=== PATIENT | male | born 1980 | race Caucasian/White ===

== ENCOUNTER 2019-03-16 07:20 | Emergency (ER) | payer BC, OTHER ==
[~2019-03-16] VITALS: Ht 182.9 cm; Wt 94.5 kg
[2019-03-16] MEDS ORDERED: LORA0.5T5 (07:36)
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
[2019-03-16] MEDS ORDERED: IBUPROFEN 600 MG TAB PO ONE (08:15)
[2019-03-16] MEDS ORDERED: KETOROLAC 30 MG/ML VIAL (J1885) IV ONE (08:15)
[2019-03-16] MEDS ORDERED: diazePAM 2 MG TAB PO ONE (08:15)
[2019-03-16] MEDS ORDERED: IBUP-1022 PO (08:16)
[2019-03-16] MEDS ORDERED: VALI2TAB PO (08:17)
[2019-03-16 08:21] VITALS: O2SAT 99
[2019-03-16 08:25] VITALS: BP 143/93
== END 2019-03-16 08:29 | disposition home or self-care (01) ==
LOC: EDBD 07:20 → M ED 07:20
DX: S13.4XXA Sprain of ligaments of cervical spine, initial encounter (principal); V47.0XXA Car driver injured in collision with fixed or stationary object in nontraffic accident, initial encounter; Z79.899 Other long term (current) drug therapy

== ENCOUNTER → 2020-03-14 | Outpatient (REF) | payer SELFPAY ==
[~2020-03-14] MED LIST: IBUP-1022 PO; LORA0.5T5; VALI2TAB PO
== END ==
LOC: M LABSMTC 11:12 → EDSTATUS 11:25
PROVIDERS: ATTEND Pediatrics
DX: Z20.822 Contact with and (suspected) exposure to COVID-19 (principal)

== ENCOUNTER → 2021-03-28 | Outpatient (REF) | LOC: M LABSMTC 10:00 | PROVIDERS: ATTEND Pediatrics | DX: Z20.822 Contact with and (suspected) exposure to COVID-19 (principal) ==

== ENCOUNTER 2022-07-29 16:06 | Emergency (ER) | payer SELFPAY ==
[~2022-07-29] VITALS: Ht 182.9 cm; Wt 99.5 kg
[2022-07-29] MEDS ORDERED: EQLTAB93 PO (16:15)
[2022-07-29] MEDS ORDERED: MORPHINE 4 MG/ML 1ML VIAL IV ONE ×2 (17:55→20:15)
[2022-07-29] MEDS ORDERED: LORazepam 2 MG/ML 1ML VIAL IV STA (18:18)
[2022-07-29 18:40] LABS: BASO % 0.5 % (0.0-1.0); EOS # 0.2 10^3/uL (0.0-0.5); EOS % 3.4 % (0.0-3.0); LYMPH # 1.4 10^3/uL (1.5-5.0); LYMPH % 23.4 % (24.0-44.0); MEAN CORPUSCULAR HEMOGLOBIN 32.1 pg (27.0-33.0); MEAN CORPUSCULAR HGB CONC 34.8 g/dl (32.0-36.5); MEAN CORPUSCULAR VOLUME 92.4 fl (80.0-96.0); MONO # 0.7 10^3/uL (0.0-0.8); MONO % 10.6 % (2.0-8.0); NEUTROPHILS # 3.8 10^3/uL (1.5-8.5); NEUTROPHILS % 61.8 % (36.0-66.0); PLATELET COUNT, AUTOMATED 253 10^3/uL (150-450); RED BLOOD COUNT 4.98 10^6/uL (4.30-6.10); WHITE BLOOD COUNT 6.2 10^3/uL (4.0-10.0)
[2022-07-29 19:06] LABS: ALKALINE PHOSPHATASE 77 U/L (46-116); ALT/SGPT 30 U/L (7.0-40); AST/SGOT 27 U/L (<34); BILIRUBIN,TOTAL 0.5 MG/DL (0.3-1.2); BLOOD UREA NITROGEN 17 MG/DL (9-23); CALCIUM LEVEL 9.4 MG/DL (8.5-10.1); CARBON DIOXIDE LEVEL 27 MMOL/L (20-31); CHLORIDE LEVEL 102 MMOL/L (98-107); GLOMERULAR FILTRATION RATE > 60.0 (>60); GLUCOSE, FASTING 86 MG/DL (60-100); POTASSIUM SERUM 4.5 MMOL/L (3.5-5.1); SODIUM LEVEL 138 MMOL/L (136-145); TOTAL PROTEIN 7.7 G/DL (5.7-8.2)
[2022-07-29] MEDS ORDERED: ISOVUE-370 76% 100ML VIAL As Ordered ONE (19:18)
[2022-07-29] MEDS ORDERED: ONDANSETRON 4MG 2ML VIAL IV ONE (20:15)
[2022-07-29] MEDS ORDERED: HYDR-3713 PO (20:38)
[2022-07-29] MEDS ORDERED: NORCO 5/325MG TABLET (HOME DOSE PACK) PO ONE (20:50)
[2022-07-29 21:21] VITALS: BP 135/84
== END 2022-07-29 21:22 | disposition home or self-care (01) ==
LOC: M ED 16:06
DX: S22.41XA Multiple fractures of ribs, right side, initial encounter for closed fracture (principal); V93.33XA Fall on board other powered watercraft, initial encounter; J90 Pleural effusion, not elsewhere classified; F41.9 Anxiety disorder, unspecified; F32.A Depression, unspecified; Z79.1 Long term (current) use of non-steroidal anti-inflammatories (NSAID); Z79.899 Other long term (current) drug therapy
CPT/HCPCS: 36415; 71101; 71260; 80053; 81001; 85025; 99284; J2060; J2405; Q9967

== ENCOUNTER → 2023-04-20 | Outpatient (REF) ==
[~2023-04-20] MED LIST changes: +EQLTAB93 PO; +HYDR-3713 PO
== END ==
LOC: M EMP 09:51
PROVIDERS: ATTEND Family Medicine
DX: Z11.52 Encounter for screening for COVID-19 (principal)

== ENCOUNTER 2024-10-17 00:57 | Emergency (ER) | payer BC, SELFPAY ==
[~2024-10-17] VITALS: Ht 182.9 cm; Wt 104.2 kg
[2024-10-17] MEDS ORDERED: LORA1TAB23 PO (01:26)
[2024-10-17] MEDS ORDERED: FOLI1TAB11 PO (01:26)
[2024-10-17] MEDS ORDERED: HYDR-3363 PO (01:26)
[2024-10-17] MEDS ORDERED: SERT50TA29 PO (01:26)
[2024-10-17 02:08] LABS: BASO # 0.1 10^3/uL (0.0-0.2); BASO % 0.7 % (0.0-1.0); EOS # 0.3 10^3/uL (0.0-0.5); EOS % 3.3 % (0.0-3.0); LYMPH # 2.2 10^3/uL (1.5-5.0); LYMPH % 25.9 % (24.0-44.0); MONO # 0.9 10^3/uL (0.0-0.8); MONO % 10.1 % (2.0-8.0); NEUTROPHILS # 5.0 10^3/uL (1.5-8.5); NEUTROPHILS % 59.5 % (36.0-66.0); PLATELET COUNT, AUTOMATED 280 10^3/uL (150-450)
[2024-10-17 02:15] LABS: ERYTHROCYTE SEDIMENTATION RATE 22 mm/hr (0-15)
[2024-10-17 02:38] LABS: CALCIUM LEVEL 8.4 MG/DL (8.5-10.1); CARBON DIOXIDE LEVEL 27.0 MMOL/L (20-31); CHLORIDE LEVEL 103.0 MMOL/L (98-107); CREATININE FOR GFR 1.09 MG/DL (0.70-1.30); GLOMERULAR FILTRATION RATE 84.8 (>60); POTASSIUM SERUM 3.9 MMOL/L (3.5-5.1); SODIUM LEVEL 142.0 MMOL/L (136-145)
[2024-10-17] MEDS ORDERED: VANCOMYCIN HCL 1,000 MG in IV FLUID PLACE HOLDER 1 EA IV ONE (02:40)
[2024-10-17] MEDS: PIPERACILLIN/TAZOBACTAM SOD 3.375 GM in DEXTROSE 5% (D5W) ADV/MINI-BAG 50 ML IV ONE (03:01)
[2024-10-17] MEDS: VANCOMYCIN HCL 1,000 MG, VIAL MATE ADAPTER 1 EACH in NS 250 ML IV ONE (04:37)
[2024-10-17] MEDS: KETOROLAC 30 MG/ML 1 ML VIAL IV ONE (05:00)
[2024-10-17 06:15] LABS: C REACTIVE PROTEIN QUANTITATIV 0.92 MG/DL (<1.0)
[2024-10-17] MEDS ORDERED: PROBCAP14 PO (06:37)
[2024-10-17] MEDS ORDERED: CLEO300C2 PO (06:37)
[2024-10-17] MEDS ORDERED: CLEO150C PO (06:37)
[2024-10-17 06:44] VITALS: BP 148/93; TEMP 98.2; O2SAT 100
[2024-10-18] MEDS ORDERED: IBUP-1114 PO (13:12)
[2024-10-18] MEDS ORDERED: CLIN150C17 PO (18:40)
[2024-10-18] MEDS ORDERED: CLIN-250 PO (18:40)
[2024-10-18] MEDS ORDERED: CLIN75CA2 PO (18:40)
[2024-10-18] MEDS ORDERED: VITA500T37 PO (18:41)
== END 2024-10-17 06:50 | disposition home or self-care (01) ==
LOC: M ED 00:57
DX: M70.21 Olecranon bursitis, right elbow (principal); M25.521 Pain in right elbow; F41.9 Anxiety disorder, unspecified; Z79.1 Long term (current) use of non-steroidal anti-inflammatories (NSAID); Z79.2 Long term (current) use of antibiotics; Z79.899 Other long term (current) drug therapy; Y93.89 Activity, other specified
CPT/HCPCS: 73080; 80048; 85025; 85652; 86140; 96365; 96366; 96367; 96375; 99283; J1885; J2543; J3373

== ENCOUNTER 2024-10-18 13:00 | Observation (INO) | payer BC ==
[~2024-10-18] VITALS: Ht 182.9 cm; Wt 110.4 kg
[~2024-10-18 13:00] MED LIST changes: +CLEO150C PO; +CLEO300C2 PO; +FOLI1TAB11 PO; +HYDR-3363 PO; -IBUP-1022 PO; +IBUP600T42 PO; +LORA1TAB23 PO; +PROBCAP14 PO; +SERT50TA29 PO
[2024-10-18] MEDS ORDERED: IBUP-1114 PO (13:12)
[2024-10-18 14:07] LABS: BASO # 0.1 10^3/uL (0.0-0.2); BASO % 0.9 % (0.0-1.0); EOS # 0.3 10^3/uL (0.0-0.5); EOS % 4.8 % (0.0-3.0); LYMPH # 1.1 10^3/uL (1.5-5.0); LYMPH % 19.4 % (24.0-44.0); MONO # 0.5 10^3/uL (0.0-0.8); MONO % 8.4 % (2.0-8.0); NEUTROPHILS # 3.6 10^3/uL (1.5-8.5); NEUTROPHILS % 65.8 % (36.0-66.0); PLATELET COUNT, AUTOMATED 239 10^3/uL (150-450)
[2024-10-18 14:30] LABS: ERYTHROCYTE SEDIMENTATION RATE 25 mm/hr (0-15)
[2024-10-18 14:42] LABS: C REACTIVE PROTEIN QUANTITATIV 1.22 MG/DL (<1.0); CALCIUM LEVEL 8.4 MG/DL (8.5-10.1); CARBON DIOXIDE LEVEL 25 MMOL/L (20-31); CHLORIDE LEVEL 104 MMOL/L (98-107); CREATININE FOR GFR 1.02 MG/DL (0.70-1.30); GLOMERULAR FILTRATION RATE > 90.0 (>60); POTASSIUM SERUM 4.2 MMOL/L (3.5-5.1); SODIUM LEVEL 139 MMOL/L (136-145)
[2024-10-18] MEDS: ONDANSETRON 4MG 2ML VIAL IV ONE (14:47)
[2024-10-18] MEDS: MORPHINE 4 MG/ML 1 ML VIAL IV ONE (14:48)
[2024-10-18] MEDS: MORPHINE 2 MG/ML 1 ML VIAL IV PRN (18:03)
[2024-10-18] MEDS: VANCOMYCIN HCL 2,000 MG, VIAL MATE ADAPTER 1 EACH in NS 500 ML IV ONE (18:09)
[2024-10-18] MEDS ORDERED: CLIN75CA2 PO (18:40)
[2024-10-18] MEDS ORDERED: CLIN150C17 PO (18:40)
[2024-10-18] MEDS ORDERED: CLIN-250 PO (18:40)
[2024-10-18] MEDS ORDERED: VITA500T37 PO (18:41)
[2024-10-18] MEDS ORDERED: HOME MED LIST COMPLETE! XX SCH (18:45)
[2024-10-18] MEDS ORDERED: KETOROLAC 30 MG/ML 1 ML VIAL IV ONE (18:55)
[2024-10-18] MEDS: KETOROLAC 30 MG/ML 1 ML VIAL IV ONE (19:01)
[2024-10-18] MEDS ORDERED: ACETAMINOPHEN 325 MG TAB PO PRN (19:05)
[2024-10-18] MEDS ORDERED: VANCOMYCIN HCL 1,000 MG, VIAL MATE ADAPTER 1 EACH in NS 250 ML IV SCH (19:05)
[2024-10-18] MEDS ORDERED: MORPHINE 2 MG/ML 1 ML VIAL IV PRN (19:05)
[2024-10-18 20:13] LABS: INR 0.96
[2024-10-18] MEDS: PIPERACILLIN/TAZOBACTAM SOD 3.375 GM in DEXTROSE 5% (D5W) ADV/MINI-BAG 50 ML IV SCH (21:00)
[2024-10-18 22:30] VITALS: BP 143/89; TEMP 98.2; O2SAT 99
[2024-10-18] MEDS: MORPHINE 4 MG/ML 1 ML VIAL IV PRN (23:24)
[2024-10-18] MEDS: VANCOMYCIN HCL 1,500 MG, VIAL MATE ADAPTER 1 EACH in NS 500 ML IV SCH (23:34)
[2024-10-19] MEDS: ACETAMINOPHEN 500 MG TAB PO ONE (02:55)
[2024-10-19] MEDS: KETOROLAC 30 MG/ML 1 ML VIAL IV ONE (02:55)
[2024-10-19] MEDS ORDERED: ONDANSETRON 4MG ORAL DISINTEGRATING TAB PO PRN (03:00)
[2024-10-19 03:29] VITALS: BP 145/93; TEMP 98.2; O2SAT 99
[2024-10-19] MEDS ORDERED: IBUPROFEN 800 MG TAB PO SCH (06:00)
[2024-10-19 07:32] LABS: PLATELET COUNT, AUTOMATED 220 10^3/uL (150-450)
[2024-10-19] MEDS: ACETAMINOPHEN 325 MG TAB PO PRN (07:48)
[2024-10-19 07:56] LABS: ALT/SGPT 26.0 U/L (7.0-40); AST/SGOT 25.0 U/L (<34); CALCIUM LEVEL 7.9 MG/DL (8.5-10.1); CARBON DIOXIDE LEVEL 26.0 MMOL/L (20-31); CHLORIDE LEVEL 108.0 MMOL/L (98-107); CREATININE FOR GFR 1.24 MG/DL (0.70-1.30); GLOMERULAR FILTRATION RATE 72.6 (>60); POTASSIUM SERUM 4.2 MMOL/L (3.5-5.1); SODIUM LEVEL 142.0 MMOL/L (136-145)
[2024-10-19] MEDS: SERTRALINE HCL 50 MG TAB PO SCH (08:31)
[2024-10-19] MEDS: CYANOCOBALAMIN 500 MCG TAB PO SCH (08:31)
[2024-10-19] MEDS: FOLIC ACID 1 MG TAB PO SCH (08:31)
[2024-10-19] MEDS ORDERED: IBUPROFEN 200 MG TAB PO SCH (08:42)
[2024-10-19] MEDS: IBUPROFEN 200 MG TAB PO SCH (09:42)
[2024-10-19 12:00] VITALS: BP 148/91; TEMP 98.1; O2SAT 98
[2024-10-19] MEDS ORDERED: ACETAMINOPHEN 500 MG TAB PO SCH (12:00)
[2024-10-19] MEDS: VANCOMYCIN HCL 1,000 MG, VIAL MATE ADAPTER 1 EACH in NS 250 ML IV SCH (12:04)
[2024-10-19] MEDS: LORazepam 1 MG TAB PO PRN (14:17)
[2024-10-19] MEDS ORDERED: PROHANCE 279.3MG/ML 15ML VIAL As Ordered ONE (14:38)
[2024-10-19] MEDS ORDERED: PROHANCE 279.3MG/ML 5ML VIAL As Ordered ONE (14:38)
[2024-10-19 20:14] VITALS: BP 151/92; TEMP 97.8; O2SAT 98
[2024-10-20 04:44] VITALS: BP 152/93; TEMP 97.3; O2SAT 95
[2024-10-20 06:59] LABS: PLATELET COUNT, AUTOMATED 257 10^3/uL (150-450)
[2024-10-20 07:35] LABS: ALT/SGPT 26.0 U/L (7.0-40); AST/SGOT 23.0 U/L (<34); CALCIUM LEVEL 8.6 MG/DL (8.5-10.1); CARBON DIOXIDE LEVEL 26.0 MMOL/L (20-31); CHLORIDE LEVEL 108.0 MMOL/L (98-107); CREATININE FOR GFR 1.18 MG/DL (0.70-1.30); GLOMERULAR FILTRATION RATE 77.1 (>60); POTASSIUM SERUM 4.3 MMOL/L (3.5-5.1); SODIUM LEVEL 143.0 MMOL/L (136-145)
[2024-10-20 09:21] LABS: C REACTIVE PROTEIN QUANTITATIV 1.17 MG/DL (<1.0)
[2024-10-20] MEDS: LIDOCAINE 5% PATCH TD PRN (11:39)
[2024-10-20 11:57] VITALS: BP 154/94
[2024-10-20 11:59] VITALS: BP 152/93; TEMP 97.9; O2SAT 98
[2024-10-20] MEDS ORDERED: IBUPROFEN 400 MG TAB PO SCH (14:00)
[2024-10-20] MEDS: IBUPROFEN 200 MG TAB PO SCH (15:09)
[2024-10-20] MEDS: traMADol 50 MG TAB PO PRN (16:35)
[2024-10-20 19:29] VITALS: BP 159/92; TEMP 98.1; O2SAT 97
[2024-10-20] MEDS: VANCOMYCIN HCL 1,250 MG, VIAL MATE ADAPTER 1 EACH in NS 250 ML IV SCH (20:06)
[2024-10-21 04:00] VITALS: BP 158/90; TEMP 97.8; O2SAT 98
[2024-10-21] MEDS ORDERED: RISATAB3 PO (07:37)
[2024-10-21] MEDS ORDERED: TRAM50TA2 PO (07:37)
[2024-10-21] MEDS ORDERED: CEPH500T PO ×2 (07:37→07:51)
[2024-10-21] MEDS ORDERED: ACET32TAB PO (07:37)
[2024-10-21 08:17] VITALS: BP 152/80; TEMP 98.1; O2SAT 100
[2024-10-21 08:23] LABS: PLATELET COUNT, AUTOMATED 256 10^3/uL (150-450)
[2024-10-21] MEDS: ENOXAPARIN 40 MG/0.4 ML SYRINGE (J1650 PER 10MG) SC SCH (08:55)
[2024-10-21 08:57] LABS: ALT/SGPT 29.0 U/L (7.0-40); AST/SGOT 26.0 U/L (<34); CALCIUM LEVEL 8.6 MG/DL (8.5-10.1); CARBON DIOXIDE LEVEL 28.0 MMOL/L (20-31); CHLORIDE LEVEL 106.0 MMOL/L (98-107); CREATININE FOR GFR 1.2 MG/DL (0.70-1.30); GLOMERULAR FILTRATION RATE 75.5 (>60); POTASSIUM SERUM 4.2 MMOL/L (3.5-5.1); SODIUM LEVEL 143.0 MMOL/L (136-145)
[2024-10-21 15:53] LABS: LYME TOTAL ANTIBODY CIA <= 0.90 Index (<=0.90)
== END 2024-10-21 10:55 | disposition home or self-care (01) ==
LOC: M ED 13:50 → M ED INP 19:01 → M MS4PR 22:24
PROVIDERS: ADMIT Internal Medicine; ATTEND Internal Medicine
DX: L03.113 Cellulitis of right upper limb (principal); F41.9 Anxiety disorder, unspecified; E53.8 Deficiency of other specified B group vitamins; Z79.899 Other long term (current) drug therapy
CPT/HCPCS: 36415; 73223; 80048; 80053; 80202; 84550; 85025; 85027; 85610; 85652; 85730; 86140; 86618; 96365; 96366; 96368; 96372; 96375; 96376; 99285; A9576; J1650; J1885; J2405; J2543; J3373; J3374

== ENCOUNTER → 2024-11-28 | Outpatient (RCR) | payer BC ==
[~2024-11-28] MED LIST changes: +ACET32TAB PO; +CEPH500T PO; +CLIN-250 PO; +CLIN150C17 PO; +CLIN75CA2 PO; +IBUP-1114 PO; +RISATAB3 PO; +TRAM50TA2 PO; +VITA500T37 PO
== END ==
LOC: M PT 09:53
PROVIDERS: ATTEND Orthopaedic Surgery
DX: L03.113 Cellulitis of right upper limb (principal)

== ENCOUNTER 2024-12-26 11:30 | Outpatient (RCR) | payer BC | END 2024-12-29 | LOC: M PT 11:30 | PROVIDERS: ATTEND Orthopaedic Surgery | DX: L03.113 Cellulitis of right upper limb (principal) ==